=== PATIENT | male | born 1975 | race Caucasian/White ===

== ENCOUNTER 2020-06-02 18:22 | Emergency (ER) | payer OTHER ==
[2020-06-02 18:30] VITALS: BP 144/90; PULSE 76; TEMP 98.2; BMI 33.5
[2020-06-02] MEDS ORDERED: KETOROLAC TROMETHAMINE 60 MG/2 ML VIAL IM ONE (19:09)
[2020-06-02] MEDS ORDERED: KETOROLAC TROMETHAMINE 60 MG/2 ML VIAL ONE (19:31)
== END 2020-06-02 19:56 | disposition home or self-care (01) ==
LOC: JERFT 18:22
PROC: 3E0233Z Introduction of Anti-inflammatory into Muscle, Percutaneous Approach (ICD-10-PCS; principal; 2020-06-02)
DX: M25.511 Pain in right shoulder (principal)
CPT/HCPCS: 99284-25